=== PATIENT | female | born 1980 | race Asian ===

== ENCOUNTER 2018-06-26 09:48 | Outpatient (CLI) | payer OTHER ==
[2018-06-27 08:14] LABS: ESTRADIOL 89.3 pg/mL (.)
== END 2018-06-26 20:39 | disposition home or self-care (01) ==
LOC: SLB 09:48
PROVIDERS: ATTEND Physician Assistant
DX: Z01.419 Encounter for gynecological examination (general) (routine) without abnormal findings (principal); R89.1 Abnormal level of hormones in specimens from other organs, systems and tissues
CPT/HCPCS: 36415; 82670; 83001; 83002; 84443-TC

== ENCOUNTER 2019-12-09 12:09 | Outpatient (CLI) | payer BC, SELFPAY | END 2019-12-09 19:55 | disposition home or self-care (01) | LOC: SLB 12:09 | PROVIDERS: ATTEND Specialist | DX: Z20.828 Contact with and (suspected) exposure to other viral communicable diseases (principal) | CPT/HCPCS: C9803; U0003 ==

== ENCOUNTER 2019-12-11 21:29 | Inpatient (IN) | payer BC ==
[~2019-12-11] VITALS: Ht 170.2 cm; Wt 69.4 kg
[2019-12-11] MEDS ORDERED: OXYTOCIN/0.9 % SODIUM CHLORIDE 1,000 ML IV SCH (22:27)
[2019-12-11] MEDS ORDERED: TERBUTALINE SULFATE 1 MG/ML VIAL SUBCUT ONE (22:30)
[2019-12-11] MEDS ORDERED: NALOXONE HCL 0.4 MG/ML AMP (NARCAN) IVP PRN (22:30)
[2019-12-11] MEDS ORDERED: MORPHINE SULFATE 10 MG/ML VIAL IVP PRN (22:30)
[2019-12-11] MEDS: LR 1,000 ML IV SCH (22:30)
[2019-12-11 23:30] LABS: BASOPHILS % (AUTO) 0.5 % (0.0-2.0); EOSINOPHILS % (AUTO) 0.5 % (0.0-4.0); HEMATOCRIT 33.6 % (36-48); HEMOGLOBIN 11.5 g/dL (12.0-16.0); LYMPHOCYTES # (AUTO) 2.1 K/uL (1.0-5.5); LYMPHOCYTES % (AUTO) 27.2 % (20.5-51.5); MEAN CORPUSCULAR HEMOGLOBIN 32 pg (27-31); MEAN CORPUSCULAR HGB CONC 34 % (32-36); MEAN CORPUSCULAR VOLUME 93 fL (79.0-98.0); MONOCYTES # (AUTO) 0.5 K/uL (0.0-1.0); MONOCYTES % (AUTO) 6.6 % (1.7-9.3); NEUTROPHILS % (AUTO) 65.2 % (40.0-70.0); PLATELET COUNT (AUTO) 286 K/uL (130-430); RED BLOOD CELL COUNT(AUTO) 3.62 MIL/uL (4.2-6.2); RED CELL DISTRIBUTION WIDTH 13.2 % (9.0-15.0); WHITE BLOOD COUNT (AUTO) 7.7 K/uL (4.8-10.8)
[2019-12-11 23:31] VITALS: BP_SYST 129
[2019-12-12] MEDS ORDERED: fentaNYL CITRATE/PF 100 MCG/2 ML AMP ONE ×2 (00:37→04:19)
[2019-12-12] MEDS ORDERED: ROPIVACAINE HCL/PF 0.2% 200 ML ONE (00:37)
[2019-12-12] MEDS: LR 1,000 ML IV SCH ×2 (00:50→02:12)
[2019-12-12] MEDS ORDERED: LR 500 ML IV ONE (00:57)
[2019-12-12] MEDS ORDERED: FENT2mCg/mL-ROPIVA0.2%/NS EPID 200 ML EP SCH (01:00)
[2019-12-12] MEDS: OXYCODONE/ACETAMINOPHEN 5-325 TABLET PO PRN ×3 (10:23→20:35)
[2019-12-12] MEDS ORDERED: OXYCODONE/ACETAMINOPHEN 5-325 TABLET ONE (10:44)
[2019-12-12] MEDS ORDERED: OXYTOCIN/0.9 % SODIUM CHLORIDE 1,000 ML IV ONE (11:22)
[2019-12-12] MEDS ORDERED: SENNOSIDES/DOCUSATE SODIUM 1 TAB TABLET(SENOKOT-S) PO PRN (11:30)
[2019-12-12] MEDS ORDERED: WITCH HAZEL LEAF 1 MED.PAD MED.PAD TP PRN (11:30)
[2019-12-12] MEDS ORDERED: LANOLIN 7 GM OINT. TP PRN (11:30)
[2019-12-12] MEDS ORDERED: HYDROCORTISONE 0.5%, 28.35 GM TOPICAL CREAM TP PRN (11:30)
[2019-12-12] MEDS ORDERED: METHYLERGONOVINE MALEATE 0.2 MG TABLET PO PRN (11:30)
[2019-12-12] MEDS ORDERED: ANUSOL 1 EA SUPP.RECT (PREPARATION H) RC PRN (11:30)
[2019-12-12] MEDS ORDERED: DERMOPLAST SPRAY TP PRN (11:30)
[2019-12-12] MEDS: IBUPROFEN 600 MG TABLET PO SCH ×2 (11:52→17:25)
[2019-12-12] MEDS: DOCUSATE SODIUM 100 MG CAPSULE PO PRN (11:52)
[2019-12-12] MEDS ORDERED: OXYCODONE/ACETAMINOPHEN 5-325 TABLET PO PRN (12:00)
[2019-12-12] MEDS ORDERED: TEMAZEPAM 15 MG CAPSULE PO PRN (21:00)
[2019-12-13] MEDS: OXYCODONE/ACETAMINOPHEN 5-325 TABLET PO PRN
[2019-12-13] MEDS: DOCUSATE SODIUM 100 MG CAPSULE PO PRN (06:02)
[2019-12-13] MEDS: IBUPROFEN 600 MG TABLET PO SCH ×3 (06:02→11:12)
[2019-12-13 07:50] LABS: BASOPHILS % (AUTO) 0.4 % (0.0-2.0); EOSINOPHILS # (AUTO) 0.1 K/uL (0.0-0.4); EOSINOPHILS % (AUTO) 0.6 % (0.0-4.0); HEMATOCRIT 30.4 % (36-48); HEMOGLOBIN 10.4 g/dL (12.0-16.0); LYMPHOCYTES # (AUTO) 2.3 K/uL (1.0-5.5); MEAN CORPUSCULAR HEMOGLOBIN 32 pg (27-31); MEAN CORPUSCULAR HGB CONC 34 % (32-36); MEAN CORPUSCULAR VOLUME 93 fL (79.0-98.0); MONOCYTES # (AUTO) 0.4 K/uL (0.0-1.0); NEUTROPHILS # (AUTO) 6.6 K/uL (1.8-7.7); PLATELET COUNT (AUTO) 253 K/uL (130-430); RED BLOOD CELL COUNT(AUTO) 3.26 MIL/uL (4.2-6.2); RED CELL DISTRIBUTION WIDTH 13.5 % (9.0-15.0); WHITE BLOOD COUNT (AUTO) 9.4 K/uL (4.8-10.8)
[2019-12-13] MEDS ORDERED: MINERAL OIL 30 ML UDC PO ONE (13:49)
[2019-12-13] MEDS ORDERED: LIDOCAINE PF 1% 30ML(POUR BTL) INJ ONE (13:49)
[2019-12-13] MEDS ORDERED: BUPIVACAINE /PF 0.5% 30 ML VIAL INJ ONE (13:49)
== END 2019-12-13 13:50 | disposition home or self-care (01) | DRG 768 ==
LOC: SPU 21:29
PROVIDERS: ADMIT Specialist; ATTEND Specialist
PROC: 10D07Z6 Extraction of Products of Conception, Vacuum, Via Natural or Artificial Opening (ICD-10-PCS; principal; 2019-12-12)
PROC: 0DQP0ZZ Repair Rectum, Open Approach (ICD-10-PCS; 2019-12-12)
PROC: 0W8NXZZ Division of Female Perineum, External Approach (ICD-10-PCS; 2019-12-12)
PROC: 3E0R3BZ Introduction of Anesthetic Agent into Spinal Canal, Percutaneous Approach (ICD-10-PCS; 2019-12-12)
PROC: 00HU33Z Insertion of Infusion Device into Spinal Canal, Percutaneous Approach (ICD-10-PCS; 2019-12-12)
DX: O70.3 Fourth degree perineal laceration during delivery (principal); Z37.0 Single live birth; O69.81X0 Labor and delivery complicated by cord around neck, without compression, not applicable or unspecified; O76 Abnormality in fetal heart rate and rhythm complicating labor and delivery; Z3A.39 39 weeks gestation of pregnancy
CPT/HCPCS: 36415; 81002-TC; 85025; 86592; 86886; 86900; 86901; J2001; J2590; J3010; J3490; J7120

== ENCOUNTER 2019-12-21 22:31 | Emergency (ER) | payer BC ==
[~2019-12-21] VITALS: Ht 170.2 cm; Wt 63.5 kg
[2019-12-21 22:45] VITALS: BP_SYST 142
[2019-12-21] MEDS ORDERED: NACL 0.9% 1,000 ML IV ONE (23:15)
[2019-12-21 23:39] LABS: BASOPHILS # (AUTO) 0.1 K/uL (0.0-0.2); BASOPHILS % (AUTO) 0.8 % (0.0-2.0); EOSINOPHILS # (AUTO) 0.1 K/uL (0.0-0.4); EOSINOPHILS % (AUTO) 1.7 % (0.0-4.0); HEMATOCRIT 31.7 % (36-48); HEMOGLOBIN 10.7 g/dL (12.0-16.0); LYMPHOCYTES # (AUTO) 2.4 K/uL (1.0-5.5); MEAN CORPUSCULAR HEMOGLOBIN 32 pg (27-31); MEAN CORPUSCULAR HGB CONC 34 % (32-36); MEAN CORPUSCULAR VOLUME 94 fL (79.0-98.0); MONOCYTES # (AUTO) 0.4 K/uL (0.0-1.0); MONOCYTES % (AUTO) 6.3 % (1.7-9.3); NEUTROPHILS % (AUTO) 57.2 % (40.0-70.0); PLATELET COUNT (AUTO) 411 K/uL (130-430); RED BLOOD CELL COUNT(AUTO) 3.38 MIL/uL (4.2-6.2); RED CELL DISTRIBUTION WIDTH 13.7 % (9.0-15.0)
[2019-12-21 23:57] LABS: PROTHROMBIN TIME 9.9 SECS (9.5-12.5)
[2019-12-22 00:12] LABS: CALCIUM 8.5 mg/dL (8.4-11.0); CREATININE 0.59 mg/dL (0.55-1.30); POTASSIUM 3.6 mmol/L (3.5-5.1)
[2019-12-22 00:23] LABS: TOTAL BILIRUBIN 0.1 mg/dL (0.0-1.0)
[2019-12-22] MEDS ORDERED: METHYLERGONOVINE MALEATE 0.2 MG TABLET PO ONE (01:00)
[2019-12-22 01:24] VITALS: BP_SYST 118
[2019-12-22] MEDS ORDERED: METHYLERGONOVINE MALEATE 0.2 MG/ML AMP ONE (01:25)
[2019-12-22] MEDS ORDERED: METHYLERGONOVINE MALEATE 0.2 MG TABLET ONE (01:28)
== END 2019-12-22 01:24 | disposition home or self-care (01) ==
LOC: SED 22:31
DX: O72.1 Other immediate postpartum hemorrhage (principal); O72.2 Delayed and secondary postpartum hemorrhage; Z37.9 Outcome of delivery, unspecified
CPT/HCPCS: 36415; 76856; 80053; 84702; 85025; 85610; 96360; 99284; J7030; J2210